=== PATIENT | male | born 1940 | race Caucasian/White ===

== ENCOUNTER → 2018-04-03 | Day surgery (SDC) | payer OTHER ==
[~2018-04-03] VITALS: Ht 175.2 cm; Wt 81.6 kg
[~2018-04-03] MED LIST: B COMPLEX1 CAP PO; CENTRUM SILVER1 TA1 PO; D3-55000 IU PO; FERROUS SULFATE27 MG PO; FINASTERIDE5 MG PO; FLOMAX0.4 MG PO; MOBIC15 MG PO; [UNRECOGNIZED DRUG - OTHER]
--- NOTE | ~2018-04-03 | O ---
[place], [place] OPERATIVE NOTE NAME: MP JONES UNIT #: [id number] ROOM: DOCTOR: ADITHYA ZAVALA MD BIRTHDATE: [birth year] DOS: 04/03/2018 GASTROENTEROLOGY CONSULTATION AND ENDOSCOPIC REPORT HISTORY OF PRESENT ILLNESS: This 77-year-old was presented with initial complaint of diarrhea, change in bowel habits. ALLERGIES: No known medication. FAMILY HISTORY: Noncontributory. PAST MEDICAL HISTORY: Associated with renal stone, broken ankle, and benign prostatic hypertrophy. SOCIAL HISTORY: Nonsmoker, nonalcohol consumer. PROCEDURE: Today's procedure part of investigation is colonoscopy plus polypectomy. PREMEDICATION: Propofol. SCOPE: Olympus folding colonoscope 10L video. REPORT: After putting the patient in left lateral position and application of lubricant to the scope, THE scope was introduced, thereafter under direct visualization advanced through the length of colon without difficulty. Base of the cecum explored, appendiceal orifice identified, ileocecal valve was defined. A sessile polypoid lesion from hepatic flexure with piecemeal polypectomy removed. Diverticulosis of the colon on the left side to a severe degree was noticed. Photographic series obtained. Scope was gradually withdrawn from ascending, transverse, descending colon. The patient was extubated and tolerated the procedure well. IMPRESSION: Severe diverticulosis of the sigmoid colon, hepatic flexure sessile polypoid lesion status post piecemeal polypectomy. PLAN: High-fiber diet. Activity ad destin. Follow up as an outpatient routinely with you, p.r.n. visit with us in [facility]. I thank you very much indeed for your kind referral. [place], [place] OPERATIVE NOTE NAME: MP JONES UNIT #: [id number] ROOM: DOCTOR: ADITHYA ZAVALA MD BIRTHDATE: [birth year] ADITHYA ZAVALA MD CM:OPRECORD:OPERATIVE NOTE [id number] ADITHYA ZAVALA MD 04/03/18 1551 interface
[2018-04-03 13:28] VITALS: BP 171/80
[2018-04-03 15:00] VITALS: BP 137/78
[2018-04-03 15:15] VITALS: BP 107/77
[2018-04-03 15:30] VITALS: BP 109/81
== END | disposition home or self-care (01) ==
LOC: SDC 03-30 09:30
DX: D12.3 Benign neoplasm of transverse colon (principal); K57.30 Diverticulosis of large intestine without perforation or abscess without bleeding; N40.0 Benign prostatic hyperplasia without lower urinary tract symptoms; J45.909 Unspecified asthma, uncomplicated; K21.9 Gastro-esophageal reflux disease without esophagitis; Z87.19 Personal history of other diseases of the digestive system; Z98.890 Other specified postprocedural states; Z87.442 Personal history of urinary calculi; Z98.41 Cataract extraction status, right eye; Z79.899 Other long term (current) drug therapy

== ENCOUNTER 2018-04-27 08:15 | Inpatient (IN) | payer OTHER ==
[~2018-04-27] VITALS: Ht 175.3 cm; Wt 79.1 kg
[2018-04-27] VITALS (8 sets, daily range): BP systolic 130–196; BP diastolic 64–92
[~2018-04-27 08:15] MED LIST changes: -BREO ELLIPTA 11 EACH INH; -GLUCOSAMINE1000 MG PO; -SPIRIVA RESPIMAT4 GM INH; -XARE15TA PO; -XARE20MG PO
[2018-04-27 08:35] LABS: BASO % 0.3 % (0.0-1.0); EOS # 0.1 10*3/uL (0.0-0.4); HEMATOCRIT 38.3 % (42.0-52.0); HEMOGLOBIN 12.3 g/dl (14.0-18.0); LYMPH # 0.9 10*3/uL (1.3-4.4); LYMPH % 14.1 % (27.0-41.0); MEAN CELL VOLUME 93.2 fl (80.0-94.0); MEAN CORPUSCULAR HGB 29.9 pg (27.0-31.0); MEAN CORPUSCULAR HGB CONC 32.1 g/dl (33.0-37.0); MEAN PLATELET VOLUME 8.8 fl (9.6-12.3); MONO # 0.8 10*3/uL (0.1-1.0); MONO % 11.6 % (3.0-9.0); NEUT # 4.6 10*3/uL (2.3-7.9); NEUT % 71.5 % (47.0-73.0); PLATELET COUNT AUTOMATED 133 10*3/uL (130-400); RED BLOOD COUNT 4.11 10*6/uL (4.50-5.90); RED CELL DISTRI WIDTH 12.9 % (0-14.5); WHITE BLOOD COUNT 6.5 10*3/uL (4.8-10.8)
[2018-04-27 08:47] LABS: ACT PARTIAL THROMBO TIME 24.1 SECONDS (20.8-31.5); INTERNATIONAL NORM RATIO 1.1 (2.0-3.5)
[2018-04-27 08:51] LABS: ALBUMIN 3.3 gm/dl (3.1-4.5); ALKALINE PHOSPHATASE 59 U/L (45-117); BUN 22 mg/dl (7-24); CHLORIDE 106 mmol/L (98-107); CREATININE 1.08 mg/dL (0.70-1.30); POTASSIUM 4.7 mmol/L (3.5-5.1); SGOT/AST 11 IU/L (3-35); SGPT/ALT 16 U/L (12-78); SODIUM 140 mmol/L (136-145); TOTAL PROTEIN 6.7 gm/dL (6.4-8.2)
[2018-04-27] MEDS ORDERED: BREO ELLIPTA 11 EACH INH (10:55)
[2018-04-27] MEDS ORDERED: GLUCOSAMINE1000 MG PO (11:15)
[2018-04-27] MEDS ORDERED: SPIRIVA RESPIMAT4 GM INH (11:18)
[2018-04-28] VITALS: BP 132/78
[2018-04-28 06:21] LABS: BASO % 0.5 % (0.0-1.0); EOS # 0.2 10*3/uL (0.0-0.4); EOS % 3.2 % (1.0-4.0); HEMATOCRIT 36.5 % (42.0-52.0); HEMOGLOBIN 11.9 g/dl (14.0-18.0); LYMPH # 1.3 10*3/uL (1.3-4.4); LYMPH % 22.6 % (27.0-41.0); MEAN CELL VOLUME 93.1 fl (80.0-94.0); MEAN CORPUSCULAR HGB 30.4 pg (27.0-31.0); MEAN CORPUSCULAR HGB CONC 32.6 g/dl (33.0-37.0); MEAN PLATELET VOLUME 9.1 fl (9.6-12.3); MONO # 0.6 10*3/uL (0.1-1.0); MONO % 10.9 % (3.0-9.0); NEUT # 3.5 10*3/uL (2.3-7.9); NEUT % 62.4 % (47.0-73.0); PLATELET COUNT AUTOMATED 135 10*3/uL (130-400); RED BLOOD COUNT 3.92 10*6/uL (4.50-5.90); WHITE BLOOD COUNT 5.6 10*3/uL (4.8-10.8)
[2018-04-28 06:41] LABS: BUN 21 mg/dl (7-24); CHLORIDE 104 mmol/L (98-107); CHOLESTEROL 125 mg/dL (<200); CREATININE 1.13 mg/dL (0.70-1.30); PHOSPHOROUS 3.5 mg/dL (2.5-4.9); POTASSIUM 4.5 mmol/L (3.5-5.1); SODIUM 140 mmol/L (136-145); TRIGLYCERIDES 32 mg/dl (<150); VLDL CHOLESTEROL 6 mg/dL (6-40)
[2018-04-28 06:48] LABS: FREE T4 1.14 ng/dl (0.76-1.46); HDL CHOLESTEROL 45 mg/dl (40-60); LDL CHOLESTEROL 74 mg/dL (9-159)
[2018-04-28 08:00] VITALS: BP 133/69
[2018-04-28 08:40] LABS: VITAMIN D, 25-HYDROXY 27.2 ng/mL (30-100)
[2018-04-28 12:00] VITALS: BP 142/70
[2018-04-28 16:00] VITALS: BP 119/68
[2018-04-28 20:06] VITALS: BP 151/75
[2018-04-29] VITALS: BP 149/69
[2018-04-29] MEDS ORDERED: XARE20MG PO (07:44)
[2018-04-29] MEDS ORDERED: XARE15TA PO ×2 (07:44→11:53)
[2018-04-29 08:00] VITALS: BP 140/71
[2018-04-29 12:00] VITALS: BP 129/71
== END 2018-04-29 13:30 | disposition home or self-care (01) | DRG 300 ==
LOC: ED 08:15 → EDHOLD 10:28 → 5E 10:28
PROVIDERS: Emergency Medicine; Internal Medicine
DX: I82.412 Acute embolism and thrombosis of left femoral vein (principal); E44.0 Moderate protein-calorie malnutrition; I82.432 Acute embolism and thrombosis of left popliteal vein; D68.59 Other primary thrombophilia; D50.9 Iron deficiency anemia, unspecified; N40.1 Benign prostatic hyperplasia with lower urinary tract symptoms; I82.442 Acute embolism and thrombosis of left tibial vein; J44.9 Chronic obstructive pulmonary disease, unspecified; Z96.659 Presence of unspecified artificial knee joint; Z79.899 Other long term (current) drug therapy; Z98.41 Cataract extraction status, right eye; Z80.0 Family history of malignant neoplasm of digestive organs; Z83.3 Family history of diabetes mellitus; Z82.49 Family history of ischemic heart disease and other diseases of the circulatory system; Z68.25 Body mass index [BMI] 25.0-25.9, adult

== ENCOUNTER → 2018-04-27 | Outpatient (CLI) | payer OTHER ==
[~2018-04-27] MED LIST changes: +BREO ELLIPTA 11 EACH INH; +GLUCOSAMINE1000 MG PO; +SPIRIVA RESPIMAT4 GM INH; +XARE15TA PO; +XARE20MG PO
== END | disposition home or self-care (01) ==
LOC: US 07:01
DX: I82.402 Acute embolism and thrombosis of unspecified deep veins of left lower extremity (principal)

== ENCOUNTER → 2018-11-24 | Outpatient (CLI) | payer MEDICARE ==
[~2018-11-24] MED LIST changes: +BREO ELLIPTA 11 EACH INH; +GLUCOSAMINE1000 MG PO; +SPIRIVA RESPIMAT4 GM INH; +TRELEGY ELLIPT1 EACH INH; +XARE15TA PO; +XARE20MG PO
[2018-11-24 11:59] LABS: BASO % 0.4 % (0.0-1.0); EOS # 0.1 10*3/uL (0.0-0.4); EOS % 0.6 % (1.0-4.0); LYMPH # 0.8 10*3/uL (1.3-4.4); LYMPH % 9.6 % (27.0-41.0); MEAN CELL VOLUME 91.9 fl (80.0-94.0); MEAN CORPUSCULAR HGB 29.9 pg (27.0-31.0); MEAN CORPUSCULAR HGB CONC 32.6 g/dl (33.0-37.0); MONO # 0.6 10*3/uL (0.1-1.0); MONO % 7.9 % (3.0-9.0); NEUT # 6.5 10*3/uL (2.3-7.9); NEUT % 81.1 % (47.0-73.0); PLATELET COUNT AUTOMATED 139 10*3/uL (130-400); RED BLOOD COUNT 4.68 10*6/uL (4.50-5.90); RED CELL DISTRI WIDTH 13.3 % (0-14.5)
[2018-11-24 12:12] LABS: ALBUMIN 3.6 gm/dl (3.1-4.5); ALKALINE PHOSPHATASE 70 U/L (45-117); BUN 18 mg/dl (7-24); CHLORIDE 103 mmol/L (98-107); CREATININE 0.98 mg/dL (0.70-1.30); POTASSIUM 4.3 mmol/L (3.5-5.1); SGOT/AST 13 IU/L (3-35); SGPT/ALT 16 U/L (12-78); SODIUM 138 mmol/L (136-145); T3 UPTAKE 37 % (31-39); THYROXINE (T4) TOTAL 8.3 ug/dl (4.5-12.1); TOTAL PROTEIN 7.2 gm/dL (6.4-8.2)
[2018-11-25 07:13] LABS: FOLLICLE STIMULATING HORMONE 20.1 mIU/mL (1.5-12.4); LUTEINIZING HORMONE 004283 8.4 mIU/mL (1.7-8.6); PROGESTERONE 004317 0.1 ng/mL (0.0-0.5); PROLACTIN 004465 6.6 ng/mL (4.0-15.2)
== END | disposition home or self-care (01) ==
LOC: LAB 09:44 → US 10:00
PROVIDERS: Urology
DX: N40.0 Benign prostatic hyperplasia without lower urinary tract symptoms (principal); N28.1 Cyst of kidney, acquired; N64.59 Other signs and symptoms in breast; N28.89 Other specified disorders of kidney and ureter; R53.83 Other fatigue

== ENCOUNTER → 2019-06-02 | Outpatient (CLI) | payer MEDICARE | END | disposition home or self-care (01) | LOC: RESCLI 01:08 | DX: J44.9 Chronic obstructive pulmonary disease, unspecified (principal); N40.0 Benign prostatic hyperplasia without lower urinary tract symptoms; I26.99 Other pulmonary embolism without acute cor pulmonale; Z79.899 Other long term (current) drug therapy; Z88.8 Allergy status to other drugs, medicaments and biological substances ==

== ENCOUNTER → 2019-06-08 | Outpatient (CLI) | payer MEDICARE | END | disposition home or self-care (01) | LOC: CARD 13:21 | DX: I07.1 Rheumatic tricuspid insufficiency (principal); I48.91 Unspecified atrial fibrillation; I25.10 Atherosclerotic heart disease of native coronary artery without angina pectoris; I51.3 Intracardiac thrombosis, not elsewhere classified; I48.0 Paroxysmal atrial fibrillation; J44.9 Chronic obstructive pulmonary disease, unspecified; I10 Essential (primary) hypertension; Z86.711 Personal history of pulmonary embolism ==

== ENCOUNTER → 2019-07-02 | Outpatient (CLI) | payer MEDICARE ==
[2019-07-02 12:24] LABS: BASO % 0.4 % (0.0-1.0); EOS # 0.1 10*3/uL (0.0-0.4); HEMATOCRIT 32.5 % (42.0-52.0); HEMOGLOBIN 10.1 g/dl (14.0-18.0); LYMPH # 0.9 10*3/uL (1.3-4.4); LYMPH % 16.6 % (27.0-41.0); MEAN CELL VOLUME 90.5 fl (80.0-94.0); MEAN CORPUSCULAR HGB 28.1 pg (27.0-31.0); MEAN CORPUSCULAR HGB CONC 31.1 g/dl (33.0-37.0); MEAN PLATELET VOLUME 10.1 fl (9.6-12.3); MONO # 0.6 10*3/uL (0.1-1.0); MONO % 11.5 % (3.0-9.0); NEUT # 3.8 10*3/uL (2.3-7.9); NEUT % 69.3 % (47.0-73.0); PLATELET COUNT AUTOMATED 162 10*3/uL (130-400); RED BLOOD COUNT 3.59 10*6/uL (4.50-5.90); RED CELL DISTRI WIDTH 15.4 % (0-14.5); WHITE BLOOD COUNT 5.5 10*3/uL (4.8-10.8)
== END | disposition home or self-care (01) ==
LOC: LAB 11:34
PROVIDERS: Internal Medicine
DX: K92.1 Melena (principal)

== ENCOUNTER → 2019-09-15 | Outpatient (CLI) | payer MEDICARE | END | disposition home or self-care (01) | LOC: RESCLI 01:14 | DX: Z13.31 Encounter for screening for depression (principal); K21.9 Gastro-esophageal reflux disease without esophagitis; J44.9 Chronic obstructive pulmonary disease, unspecified; I10 Essential (primary) hypertension; N40.0 Benign prostatic hyperplasia without lower urinary tract symptoms; J45.909 Unspecified asthma, uncomplicated; Z95.5 Presence of coronary angioplasty implant and graft; Z86.711 Personal history of pulmonary embolism; Z79.899 Other long term (current) drug therapy; Z88.8 Allergy status to other drugs, medicaments and biological substances ==